=== PATIENT | female | born 2005 | race Caucasian/White ===

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

== ENCOUNTER → 2023-01-22 | Outpatient (CLI) | payer OTHER ==
[2023-01-22 19:40] LABS: BASOPHILS ABSOLUTE AUTO 0.04 K/mm3 (0.00-0.23); BASOPHILS PERCENT AUTO 1 % (0-2); EOSINOPHILS PERCENT AUTO 1 % (0-6); Hematocrit 46.5 % (33.0-51.0); Hemoglobin 15.8 g/dL (11.5-16.0); IMMATURE GRAN ABSOLUTE AUTO 0.02 K/mm3 (0.00-0.10); IMMATURE GRAN PERCENT AUTO 0 % (0-1); LYMPHOCYTES ABSOLUTE AUTO 2.82 K/mm3 (0.84-5.20); LYMPHOCYTES PERCENT AUTO 37 % (21-46); MONOCYTES ABSOLUTE AUTO 0.66 K/mm3 (0.16-1.47); MONOCYTES PERCENT AUTO 9 % (4-13); Mean Corpuscular HGB 32.6 pg (26.0-34.0); Mean Corpuscular Volume 96 fL (80-100); Mean Platelet Volume 9.6 fL (9.1-12.4); NEUTROPHILS ABSOLUTE AUTO 3.92 K/mm3 (1.96-9.15); NEUTROPHILS PERCENT AUTO 52 % (41-73); Platelet Count 303 K/mm3 (150-400); RDW Standard Deviation 46.4 fL (35.1-46.3); RETICULOCYTE ABSOLUTE 0.0538 M/mm3 (0.0200-0.1100); RETICULOCYTE COUNT PERCENT 1.11 % (0.50-2.50); Red Blood Cell Count 4.85 M/mm3 (3.80-5.20); White Blood Cell Count 7.56 K/mm3 (4.00-11.30)
[2023-01-22 19:56] LABS: Percent Saturation 34.4 % (15.0-50.0)
== END ==
LOC: LAB SHORT 18:52 → LAB 18:52
PROVIDERS: Family Medicine
DX: D50.8 Other iron deficiency anemias (principal); D64.9 Anemia, unspecified
CPT/HCPCS: 82728; 83540; 83550; 85025; 85045

== ENCOUNTER 2023-07-02 09:16 | Emergency (ER) | payer BC, OTHER ==
[~2023-07-02] VITALS: Ht 157.5 cm; Wt 61.2 kg
[2023-07-02] MEDS ORDERED: SYMBICORT 80-10.2 GM (09:52)
[2023-07-02] MEDS ORDERED: INDO50 PO (09:52)
[2023-07-02 10:24] LABS: BASOPHILS ABSOLUTE AUTO 0.03 K/mm3 (0.00-0.23); BASOPHILS PERCENT AUTO 1 % (0-2); EOSINOPHILS ABSOLUTE AUTO 0.06 K/mm3 (0.00-0.68); EOSINOPHILS PERCENT AUTO 1 % (0-6); Hematocrit 52.8 % (33.0-51.0); Hemoglobin 17.7 g/dL (11.5-16.0); IMMATURE GRAN ABSOLUTE AUTO 0.01 K/mm3 (0.00-0.10); IMMATURE GRAN PERCENT AUTO 0 % (0-1); LYMPHOCYTES ABSOLUTE AUTO 1.32 K/mm3 (0.84-5.20); LYMPHOCYTES PERCENT AUTO 27 % (21-46); MONOCYTES ABSOLUTE AUTO 0.43 K/mm3 (0.16-1.47); MONOCYTES PERCENT AUTO 9 % (4-13); Mean Corpuscular HGB 31.4 pg (26.0-34.0); Mean Corpuscular HGB Conc 33.5 g/dL (31.5-36.5); Mean Corpuscular Volume 94 fL (80-100); Mean Platelet Volume 9.3 fL (9.1-12.4); NEUTROPHILS PERCENT AUTO 63 % (41-73); Platelet Count 159 K/mm3 (150-400); RDW Coefficient Variation 12.2 % (11.7-14.2); RDW Standard Deviation 42.8 fL (35.1-46.3); Red Blood Cell Count 5.63 M/mm3 (3.80-5.20); White Blood Cell Count 4.95 K/mm3 (4.00-11.30)
[2023-07-02 10:55] LABS: Bun/Creatinine Ratio 13.8 (12.0-20.0); Calcium, Blood 9.1 mg/dL (8.5-10.1); Creatinine, Blood 0.58 mg/dL (0.40-1.00); Potassium, Blood 3.8 mmol/L (3.5-5.5); Thyroid Stimulating Hormone 0.594 uIU/mL (0.360-4.800)
[2023-07-02] MEDS ORDERED: MECL25 PO (13:02)
[2023-07-02 13:21] VITALS: BP 106/77
== END 2023-07-02 13:22 | disposition home or self-care (01) ==
LOC: ER 09:16
PROVIDERS: Emergency Medicine
DX: H81.10 Benign paroxysmal vertigo, unspecified ear (principal); G43.909 Migraine, unspecified, not intractable, without status migrainosus; Z79.899 Other long term (current) drug therapy; Z88.0 Allergy status to penicillin
CPT/HCPCS: 70450; 80048; 84443; 84703; 85025; 99284-25; A9270

== ENCOUNTER → 2023-07-29 | Outpatient (CLI) | payer BC, OTHER ==
[~2023-07-29] MED LIST changes: +INDO50 PO; +MECL25 PO; +SYMBICORT 80-10.2 GM
[2023-07-30 11:58] LABS: Candida species (DNA Probe) Negative (NEGATIVE); G. vaginalis (DNA Probe) Positive (NEGATIVE); T. vaginalis (DNA Probe) Negative (NEGATIVE)
== END ==
LOC: LAB 16:25 → LAB SHORT 16:25
PROVIDERS: Family Medicine
DX: N89.8 Other specified noninflammatory disorders of vagina (principal)
CPT/HCPCS: 87480; 87510; 87660

== ENCOUNTER → 2023-09-10 | Outpatient (CLI) | payer BC, OTHER ==
[2023-09-10 19:30] LABS: Percent Saturation 89.9 % (15.0-50.0)
== END | disposition home or self-care (01) ==
LOC: LAB SHORT 17:00 → LAB 17:00
PROVIDERS: Internal Medicine Hematology & Oncology
DX: D50.0 Iron deficiency anemia secondary to blood loss (chronic) (principal); E53.8 Deficiency of other specified B group vitamins
CPT/HCPCS: 82607; 82728; 82746; 83540; 83550

== ENCOUNTER → 2023-10-02 | Outpatient (CLI) | payer OTHER ==
[2023-10-02 20:30] LABS: Free Thyroxine 0.85 ng/dL (0.70-1.60); Thyroid Stimulating Hormone 1.51 uIU/mL (0.360-4.800)
== END | disposition home or self-care (01) ==
LOC: LAB 17:17 → LAB SHORT 17:17
PROVIDERS: Internal Medicine Hematology & Oncology
DX: E03.9 Hypothyroidism, unspecified (principal)
CPT/HCPCS: 84439; 84443

== ENCOUNTER → 2023-11-22 | Outpatient (CLI) | payer OTHER ==
[~2023-11-22] MED LIST changes: +ALBU90OI INH; +PRENATAL TABLE1 EAC2 PO; +SYMBICORT 160-4.6 GM INH
[2023-11-23 07:29] LABS: Percent Saturation 21.4 % (15.0-50.0)
== END | disposition home or self-care (01) ==
LOC: LAB SHORT 10:48 → LAB 10:48
PROVIDERS: Internal Medicine Hematology & Oncology
DX: D50.0 Iron deficiency anemia secondary to blood loss (chronic) (principal); E53.8 Deficiency of other specified B group vitamins
CPT/HCPCS: 82607; 82728; 82746; 83540; 83550

== ENCOUNTER → 2024-07-22 | Outpatient (CLI) | payer OTHER ==
[2024-07-22 19:57] LABS: Bacterial Vaginosis PCR Negative (NEGATIVE); Candida Group, PCR NOT DETECTED (NOT DETECT); Candida glabrata-krusei, PCR NOT DETECTED (NOT DETECT)
== END ==
LOC: LAB SHORT 16:41 → LAB 16:41
PROVIDERS: Obstetrics & Gynecology
DX: N89.8 Other specified noninflammatory disorders of vagina (principal)
CPT/HCPCS: 87481; 87661; 87801

== ENCOUNTER 2024-10-02 08:18 | Day surgery (SDC) | payer OTHER ==
[2024-10-02] VITALS (11 sets, daily range): BP systolic 100–140; BP diastolic 66–100
[~2024-10-02] VITALS: Ht 157.5 cm; Wt 62.1 kg
[~2024-10-02 08:18] MED LIST changes: +Bisoprolol Fuma10 MG PO; +CeFAZolin Sodium 2,000 MG in NS 100 ML IV SCH; +Lactated Ringer's 1,000 ML IV SCH
--- NOTE | 2024-10-02 08:45 | NUR ---
AMBULATORY INTO [facility]. PT DENIES PAIN OR SOB. HISTORY AND ALLEGIES REVIEWED. PT HAS HX OF RASH AFTER PREP WITH "ORANGE" CHLORHEXIDINE WIPES. PT DID TWO CHLORHEXIDINE SHOWERS AND NO RASH NOTED. PT HAS POSITIONAL MURMUR THAT IS ONLY AUSCULTATED WHEN PT IS BENT OVER. HR 50'S-PT REPORTS HISTORY OF TACHYCARDIA WELL. LUNGS CLEAR. PT HAS HX OF ASTHMA, BUT DENIES SOB-SATS>90% ON RA. PT S/O AMY IS RIDE HOME TODAY. PT CLOTHING AND CELL PHONE IN BELONGINGS BAG BELOW THE GURNEY.
[2024-10-02] MEDS ORDERED: Ketorolac Tromethamine 30mg Vial ONE (09:15)
[2024-10-02] MEDS ORDERED: Ondansetron HCl 2 MG / ML 2ML Vial ONE (09:15)
[2024-10-02] MEDS ORDERED: Sugammadex Sodium 200 MG/2ML SDV (100 MG/ML) ONE (09:15)
[2024-10-02] MEDS ORDERED: Rocuronium Bromide 10 MG/ML 5ML Injection IV ONE ×2 (09:15→10:59)
[2024-10-02] MEDS ORDERED: Metoclopramide HCl 5MG / ML 2ML Vial ONE (09:15)
[2024-10-02] MEDS ORDERED: Dexamethasone Sod Phos 10 MG/ML 1ML VIAL ONE (09:15)
[2024-10-02] MEDS ORDERED: Scopolamine Hydrobromide Patch TOP SCH (09:20)
[2024-10-02] MEDS ORDERED: Acetaminophen 500 MG Tab PO SCH (09:20)
[2024-10-02] MEDS ORDERED: Bupivacaine 0.5% HCl 5 MG/ML 30MLVIAL ONE (09:58)
[2024-10-02] MEDS ORDERED: propofoL 100 ML IV ONE (10:04)
[2024-10-02] MEDS ORDERED: HYDROmorphone HCl/Pf 1MG SYR ONE (10:07)
[2024-10-02] MEDS ORDERED: Glycopyrrolate 0.2 MG/ML 5ML VIAL ONE (11:17)
[2024-10-02] MEDS ORDERED: propofoL 20 ML IV ONE (11:26)
[2024-10-02] MEDS ORDERED: OxyCODONE 5 mg/Acetamin 325 mg TABLET PO PRN (12:15)
[2024-10-02] MEDS ORDERED: Ondansetron HCl 2 MG / ML 2ML Vial IV PRN (12:15)
--- NOTE | 2024-10-02 13:13 | NUR ---
1443 RECEIVED PATIENT FROM PACU, SLEEPY, VSS, 4 SMALL ABDOMINAL INC D&I INTACT WITH SKIN GLUE. HAS SMALL AMT RED VAGINAL DRAINAGE ON ZEN PAD. PT DENIES PAIN, H2O PO GIVEN, PT LINDSAY WELL. 1300 UP TO BEDSIDE COMODE, VOIDED WITHOUT DIFFICULTY
== END 2024-10-02 23:00 | disposition home or self-care (01) ==
LOC: ORSCMMR 08:18 → ORD 10:00 → ORSCMMR 10:00 → ORD 11:00 → ORSCMMR 23:00
PROVIDERS: Obstetrics & Gynecology
PROC: 8E0W4CZ Robotic Assisted Procedure of Trunk Region, Percutaneous Endoscopic Approach (ICD-10-PCS; principal; 2024-10-02 10:00)
PROC: 0UB14ZZ Excision of Left Ovary, Percutaneous Endoscopic Approach (ICD-10-PCS; principal; 2024-10-02 10:00)
PROC: 0DNW4ZZ Release Peritoneum, Percutaneous Endoscopic Approach (ICD-10-PCS; principal; 2024-10-02 10:00)
PROC: 0UB64ZZ Excision of Left Fallopian Tube, Percutaneous Endoscopic Approach (ICD-10-PCS; principal; 2024-10-02 10:00)
DX: N80.9 Endometriosis, unspecified (principal); R10.2 Pelvic and perineal pain; J45.909 Unspecified asthma, uncomplicated; K21.9 Gastro-esophageal reflux disease without esophagitis; Z79.899 Other long term (current) drug therapy; F17.210 Nicotine dependence, cigarettes, uncomplicated
CPT/HCPCS: 88305; A9270; J0690; J1100; J1171; J1885; J2405; J2704; J2765; J7120

== ENCOUNTER 2024-10-19 03:06 | Emergency (ER) | payer OTHER ==
[~2024-10-19] VITALS: Ht 157.5 cm; Wt 68.0 kg
[~2024-10-19 03:06] MED LIST changes: -CeFAZolin Sodium 2,000 MG in NS 100 ML IV SCH; -Lactated Ringer's 1,000 ML IV SCH
[2024-10-19] MEDS ORDERED: SYMBICORT 160-4.6 GM IH (03:22)
[2024-10-19] MEDS ORDERED: Ketorolac Tromethamine 30mg Vial IV ONE (03:30)
[2024-10-19] MEDS ORDERED: NS 1,000 ML IV SCH ×2 (03:30→04:50)
[2024-10-19] MEDS ORDERED: Haloperidol Lactate Inj. 5 MG/ML Injection IM ONE (03:30)
[2024-10-19 03:44] LABS: BASOPHILS ABSOLUTE AUTO 0.03 K/mm3 (0.00-0.23); BASOPHILS PERCENT AUTO 1 % (0-2); EOSINOPHILS ABSOLUTE AUTO 0.02 K/mm3 (0.00-0.68); EOSINOPHILS PERCENT AUTO 0 % (0-6); Hematocrit 42.1 % (33.0-51.0); Hemoglobin 14.9 g/dL (11.5-16.0); IMMATURE GRAN ABSOLUTE AUTO 0.01 K/mm3 (0.00-0.10); IMMATURE GRAN PERCENT AUTO 0 % (0-1); LYMPHOCYTES ABSOLUTE AUTO 2.78 K/mm3 (0.84-5.20); LYMPHOCYTES PERCENT AUTO 51 % (21-46); MONOCYTES ABSOLUTE AUTO 0.36 K/mm3 (0.16-1.47); MONOCYTES PERCENT AUTO 7 % (4-13); Mean Corpuscular HGB 32.6 pg (26.0-34.0); Mean Corpuscular HGB Conc 35.4 g/dL (31.5-36.5); Mean Corpuscular Volume 92 fL (80-100); Mean Platelet Volume 9.3 fL (9.1-12.4); NEUTROPHILS ABSOLUTE AUTO 2.27 K/mm3 (1.96-9.15); NEUTROPHILS PERCENT AUTO 42 % (41-73); Platelet Count 199 K/mm3 (150-400); RDW Standard Deviation 40.5 fL (35.1-46.3); Red Blood Cell Count 4.57 M/mm3 (3.80-5.20); White Blood Cell Count 5.47 K/mm3 (4.00-11.30)
[2024-10-19 04:15] LABS: Albumin, Blood 4.2 g/dL (3.4-5.0); Albumin/Globulin Ratio 1.2 (0.8-1.8); Bilirubin, Total 0.5 mg/dL (0.1-1.0); Bun/Creatinine Ratio 12.3 (12.0-20.0); Calcium, Blood 8.8 mg/dL (8.5-10.1); Creatinine, Blood 0.57 mg/dL (0.40-1.00); Globulin, Blood 3.6 g/dL (2.2-4.0); Total Protein, Blood 7.8 g/dL (6.4-8.2)
[2024-10-19] MEDS ORDERED: Morphine Sulfate 4 MG/1 ML Injection IV ONE (04:20)
[2024-10-19 06:00] VITALS: BP 82/61
[2024-10-19 07:39] LABS: Source, Urine Clean Catch
[2024-10-19 07:48] LABS: Appearance, Urine Clear (Clear); Bilirubin, Urine Neg (Neg); Blood, Urine Neg (Neg); Color, Urine Yellow (P-Yellow); Glucose Qualitative, Urine Neg (Neg); Ketones, Urine Neg (Neg); Leukocyte Esterase, Urine Neg (Neg); Nitrite, Urine Neg (Neg); Protein, Urine Neg (Neg); Specific Gravity, Urine 1.005 (1.003-1.022); Urobilinogen, Urine NORM (Normal)
[2024-10-19] MEDS ORDERED: ACET500 PO (09:37)
== END 2024-10-19 09:43 | disposition home or self-care (01) ==
LOC: ER 03:06
PROVIDERS: Emergency Medicine
DX: R10.2 Pelvic and perineal pain (principal); Z79.899 Other long term (current) drug therapy; Z79.51 Long term (current) use of inhaled steroids; Z88.0 Allergy status to penicillin
CPT/HCPCS: 36415; 74177; 80053; 81003; 83605; 84703; 85025; J1630; J1885; J2270; J7030; Q9967

== ENCOUNTER 2024-10-19 22:27 | Emergency (ER) | payer OTHER ==
[~2024-10-19] VITALS: Ht 157.5 cm; Wt 56.7 kg
[~2024-10-19 22:27] MED LIST changes: +ACET500 PO; +SYMBICORT 160-4.6 GM IH
[2024-10-19] MEDS ORDERED: Diazepam 5 MG / ML 2ML SYR IV ONE (22:45)
[2024-10-19 23:05] LABS: BASOPHILS ABSOLUTE AUTO 0.05 K/mm3 (0.00-0.23); BASOPHILS PERCENT AUTO 1 % (0-2); EOSINOPHILS ABSOLUTE AUTO 0.11 K/mm3 (0.00-0.68); EOSINOPHILS PERCENT AUTO 1 % (0-6); Hematocrit 42.6 % (33.0-51.0); Hemoglobin 14.6 g/dL (11.5-16.0); IMMATURE GRAN ABSOLUTE AUTO 0.01 K/mm3 (0.00-0.10); IMMATURE GRAN PERCENT AUTO 0 % (0-1); LYMPHOCYTES ABSOLUTE AUTO 4.32 K/mm3 (0.84-5.20); LYMPHOCYTES PERCENT AUTO 46 % (21-46); MONOCYTES ABSOLUTE AUTO 0.77 K/mm3 (0.16-1.47); MONOCYTES PERCENT AUTO 8 % (4-13); Mean Corpuscular HGB 32.7 pg (26.0-34.0); Mean Corpuscular HGB Conc 34.3 g/dL (31.5-36.5); Mean Corpuscular Volume 95 fL (80-100); Mean Platelet Volume 9.9 fL (9.1-12.4); NEUTROPHILS ABSOLUTE AUTO 4.06 K/mm3 (1.96-9.15); NEUTROPHILS PERCENT AUTO 44 % (41-73); Platelet Count 213 K/mm3 (150-400); RDW Coefficient Variation 12.2 % (11.7-14.2); RDW Standard Deviation 43.1 fL (35.1-46.3); Red Blood Cell Count 4.47 M/mm3 (3.80-5.20); White Blood Cell Count 9.32 K/mm3 (4.00-11.30)
[2024-10-19 23:32] LABS: Albumin, Blood 4.1 g/dL (3.4-5.0); Albumin/Globulin Ratio 1.2 (0.8-1.8); Bilirubin, Total 0.7 mg/dL (0.1-1.0); Bun/Creatinine Ratio 9.6 (12.0-20.0); Calcium, Blood 9.5 mg/dL (8.5-10.1); Creatinine, Blood 0.63 mg/dL (0.40-1.00); Globulin, Blood 3.5 g/dL (2.2-4.0); Magnesium, Blood 1.9 mg/dL (1.6-2.4); Potassium, Blood 3.2 mmol/L (3.5-5.5); Total Protein, Blood 7.6 g/dL (6.4-8.2)
[2024-10-19] MEDS ORDERED: NS 1,000 ML IV SCH (23:40)
[2024-10-19] MEDS ORDERED: Potassium Chl 20MEQ/Water100ML 100 ML IV ONE (23:40)
[2024-10-20 00:16] VITALS: BP 104/74
[2024-10-20] MEDS ORDERED: Potassium Chloride 10 Meq Tablet SA PO ONE (01:10)
[2024-10-20 01:15] LABS: Base Excess Venous 0 mmol/L; Bicarbonate Venous 24.6 mmol/L (24.0-30.0); PCO2 Venous 38.2 mmHg (38-42); pH Blood Venous 7.42 (7.34-7.37)
== END 2024-10-20 01:40 | disposition home or self-care (01) ==
LOC: ER 22:27
PROVIDERS: Emergency Medicine
DX: G24.9 Dystonia, unspecified (principal); F41.9 Anxiety disorder, unspecified; Z88.1 Allergy status to other antibiotic agents; Z88.0 Allergy status to penicillin; Z79.51 Long term (current) use of inhaled steroids; R10.2 Pelvic and perineal pain; Z79.899 Other long term (current) drug therapy
CPT/HCPCS: 36415; 74177; 80053; 81003; 82803; 83605; 83735; 84703; 85025; 96361; 96365; 96372-59; 96374-59; 96375; 99284-25; A9270; J1630; J1885; J2270; J3360; J3480; J7030; Q9967

== ENCOUNTER → 2025-05-27 | Outpatient (CLI) | payer OTHER ==
[2025-05-27 11:50] LABS: BASOPHILS ABSOLUTE AUTO 0.03 K/mm3 (0.00-0.23); BASOPHILS PERCENT AUTO 1 % (0-2); EOSINOPHILS ABSOLUTE AUTO 0.04 K/mm3 (0.00-0.68); EOSINOPHILS PERCENT AUTO 1 % (0-6); Hematocrit 41.9 % (33.0-51.0); Hemoglobin 14.8 g/dL (11.5-16.0); IMMATURE GRAN ABSOLUTE AUTO 0.00 K/mm3 (0.00-0.10); IMMATURE GRAN PERCENT AUTO 0 % (0-1); LYMPHOCYTES ABSOLUTE AUTO 1.54 K/mm3 (0.84-5.20); LYMPHOCYTES PERCENT AUTO 38 % (21-46); MONOCYTES ABSOLUTE AUTO 0.32 K/mm3 (0.16-1.47); MONOCYTES PERCENT AUTO 8 % (4-13); Mean Corpuscular HGB Conc 35.3 g/dL (31.5-36.5); Mean Corpuscular Volume 94 fL (80-100); NEUTROPHILS ABSOLUTE AUTO 2.08 K/mm3 (1.96-9.15); NEUTROPHILS PERCENT AUTO 52 % (41-73); NRBC ABSOLUTE 0.00 K/mm3 (0.00-0.02); NRBC Auto 0.0 /100 WBC (0.0-0.2); Platelet Count 213 K/mm3 (150-400); RDW Coefficient Variation 11.9 % (11.7-14.2); RDW Standard Deviation 41.2 fL (35.1-46.3)
[2025-05-27 12:00] LABS: Alanine Aminotransfer (ALT/SGP 26.0 U/L (12-78); Albumin, Blood 4.3 g/dL (3.4-5.0); Albumin/Globulin Ratio 1.2 (0.8-1.8); Anion Gap 12.0 mmol/L (3-11); Aspartate Aminotrans (AST/SGOT 21.0 U/L (12-37); Bilirubin, Total 1.2 mg/dL (0.1-1.0); Blood Urea Nitrogen 8.0 mg/dL (8-24); CO2, Blood 29.0 mmol/L (21-32); Calcium, Blood 9.5 mg/dL (8.5-10.1); Chloride, Blood 102.0 mmol/L (98-108); Creatinine, Blood 0.67 mg/dL (0.40-1.00); Globulin, Blood 3.7 g/dL (2.2-4.0); Glucose, Blood 95.0 mg/dL (70-99); Potassium, Blood 3.8 mmol/L (3.5-5.5); Sodium, Blood 139.0 mmol/L (136-145); Total Protein, Blood 8.0 g/dL (6.4-8.2)
== END | disposition home or self-care (01) ==
LOC: LAB 11:45 → LAB SHORT 11:45
PROVIDERS: Chiropractor
DX: R10.11 Right upper quadrant pain (principal); R82.998 Other abnormal findings in urine
CPT/HCPCS: 80053; 83690; 85025; 87086

== ENCOUNTER 2025-05-29 14:46 | Emergency (ER) | payer OTHER ==
[~2025-05-29] VITALS: Ht 157.5 cm; Wt 54.4 kg
[2025-05-29 15:50] LABS: BASOPHILS ABSOLUTE AUTO 0.04 K/mm3 (0.00-0.23); BASOPHILS PERCENT AUTO 1 % (0-2); EOSINOPHILS ABSOLUTE AUTO 0.03 K/mm3 (0.00-0.68); EOSINOPHILS PERCENT AUTO 1 % (0-6); Hematocrit 44.5 % (33.0-51.0); Hemoglobin 15.3 g/dL (11.5-16.0); IMMATURE GRAN ABSOLUTE AUTO 0.01 K/mm3 (0.00-0.10); IMMATURE GRAN PERCENT AUTO 0 % (0-1); LYMPHOCYTES ABSOLUTE AUTO 2.18 K/mm3 (0.84-5.20); LYMPHOCYTES PERCENT AUTO 35 % (21-46); MONOCYTES ABSOLUTE AUTO 0.42 K/mm3 (0.16-1.47); MONOCYTES PERCENT AUTO 7 % (4-13); Mean Corpuscular HGB Conc 34.4 g/dL (31.5-36.5); Mean Corpuscular Volume 93 fL (80-100); NEUTROPHILS ABSOLUTE AUTO 3.60 K/mm3 (1.96-9.15); NEUTROPHILS PERCENT AUTO 57 % (41-73); NRBC ABSOLUTE 0.00 K/mm3 (0.00-0.02); NRBC Auto 0.0 /100 WBC (0.0-0.2); Platelet Count 221 K/mm3 (150-400); RDW Coefficient Variation 11.9 % (11.7-14.2); RDW Standard Deviation 41.0 fL (35.1-46.3)
[2025-05-29 16:29] LABS: Alanine Aminotransfer (ALT/SGP 28.0 U/L (12-78); Albumin, Blood 4.6 g/dL (3.4-5.0); Albumin/Globulin Ratio 1.2 (0.8-1.8); Anion Gap 7.0 mmol/L (3-11); Aspartate Aminotrans (AST/SGOT 22.0 U/L (12-37); Bilirubin, Total 0.7 mg/dL (0.1-1.0); Blood Urea Nitrogen 12.0 mg/dL (8-24); CO2, Blood 28.0 mmol/L (21-32); Calcium, Blood 9.9 mg/dL (8.5-10.1); Chloride, Blood 103.0 mmol/L (98-108); Creatinine, Blood 0.7 mg/dL (0.40-1.00); Globulin, Blood 3.9 g/dL (2.2-4.0); Glucose, Blood 84.0 mg/dL (70-99); Potassium, Blood 3.9 mmol/L (3.5-5.5); Sodium, Blood 134.0 mmol/L (136-145); Total Protein, Blood 8.5 g/dL (6.4-8.2)
[2025-05-29] MEDS ORDERED: NS 1,000 ML IV SCH (16:30)
[2025-05-29] MEDS ORDERED: ONDA4ODT MM (17:41)
[2025-05-29 17:44] VITALS: BP 108/73
== END 2025-05-29 17:50 | disposition home or self-care (01) ==
LOC: ER 14:46
PROVIDERS: Student in an Organized Health Care Education/Training Program
DX: N20.0 Calculus of kidney (principal); R10.13 Epigastric pain; Z79.899 Other long term (current) drug therapy; Z79.51 Long term (current) use of inhaled steroids; Z88.0 Allergy status to penicillin
CPT/HCPCS: 74177; 80053; 83690; 84703; 85025; 99284-25; J7030; Q9967